=== PATIENT | female | born 2000 | race Two or more races ===

== ENCOUNTER 2020-09-08 21:25 | Inpatient (IN) | payer OTHER ==
[~2020-09-08] VITALS: Ht 154.9 cm; Wt 54.0 kg
[2020-09-11] MEDS ORDERED: PRENATAL + DHA1 EAC1 PO (08:40)
== END 2020-09-18 14:41 | disposition home or self-care (01) | DRG 787 ==
LOC: OBS/DEL 21:25 → LDR 22:35 → OB/GYN 22:35
PROVIDERS: ADMIT Obstetrics & Gynecology; ATTEND Obstetrics & Gynecology
PROC: 4A1HX4Z Monitoring of Products of Conception, Cardiac Electrical Activity, External Approach (ICD-10-PCS; 2020-09-08)
PROC: 3E033VJ Introduction of Other Hormone into Peripheral Vein, Percutaneous Approach (ICD-10-PCS; 2020-09-15)
PROC: 10D00Z1 Extraction of Products of Conception, Low, Open Approach (ICD-10-PCS; principal; 2020-09-15 07:00)
DX: O60.10X0 Preterm labor with preterm delivery, unspecified trimester, not applicable or unspecified (principal); O26.872 Cervical shortening, second trimester; O36.5930 Maternal care for other known or suspected poor fetal growth, third trimester, not applicable or unspecified; Z3A.28 28 weeks gestation of pregnancy; Z37.0 Single live birth; B95.1 Streptococcus, group B, as the cause of diseases classified elsewhere; Z20.822 Contact with and (suspected) exposure to COVID-19

== ENCOUNTER 2020-11-01 08:00 | Outpatient (CLI) | payer OTHER ==
[~2020-11-01 08:00] MED LIST: PRENATAL + DHA1 EAC1 PO
== END 2020-11-01 08:30 | disposition home or self-care (01) ==
LOC: PPH VACUNA 08:00
DX: Z23 Encounter for immunization (principal)

== ENCOUNTER 2020-11-21 08:00 | Outpatient (CLI) | payer OTHER | END 2020-11-21 08:30 | disposition home or self-care (01) | LOC: PPH VACUNA 08:00 | DX: Z23 Encounter for immunization (principal) ==

== ENCOUNTER 2021-03-31 22:29 | Emergency (ER) | payer OTHER ==
[~2021-03-31] VITALS: Ht 157.5 cm; Wt 55.8 kg
[2021-04-01] MEDS ORDERED: ZYRTEC10 MG PO (01:59)
[2021-04-01] MEDS ORDERED: TUSNEL LIQUID178 ML PO (01:59)
[2021-04-01] MEDS ORDERED: ZITHROMAX500 MG PO (01:59)
== END 2021-04-01 02:37 | disposition home or self-care (01) ==
LOC: ER 22:29
DX: J06.9 Acute upper respiratory infection, unspecified (principal)

== ENCOUNTER 2022-03-18 07:54 | Emergency (ER) | payer OTHER ==
[~2022-03-18] VITALS: Ht 154.9 cm; Wt 56.2 kg
[~2022-03-18 07:54] MED LIST changes: +TUSNEL LIQUID178 ML PO; +ZITHROMAX500 MG PO; +ZYRTEC10 MG PO
[2022-03-18] MEDS ORDERED: PRENA1 CHEW TA1.4 MG PO (08:01)
[2022-03-18] MEDS ORDERED: CENTANY30 GM TOP (08:52)
== END 2022-03-18 09:06 | disposition home or self-care (01) ==
LOC: ER 07:54
DX: S81.851A Open bite, right lower leg, initial encounter (principal); W54.0XXA Bitten by dog, initial encounter; Y93.89 Activity, other specified; Y92.89 Other specified places as the place of occurrence of the external cause; Z91.013 Allergy to seafood

== ENCOUNTER 2022-06-07 12:37 | Inpatient (IN) | payer OTHER ==
[~2022-06-07] VITALS: Ht 154.9 cm; Wt 64.0 kg
[~2022-06-07 12:37] MED LIST changes: +CENTANY30 GM TOP; +PRENA1 CHEW TA1.4 MG PO
== END 2022-06-12 14:33 | disposition home or self-care (01) | DRG 788 ==
LOC: LDR 12:37 → OB/GYN 12:37
PROVIDERS: ADMIT Obstetrics & Gynecology; ATTEND Obstetrics & Gynecology
PROC: 4A1HXCZ Monitoring of Products of Conception, Cardiac Rate, External Approach (ICD-10-PCS; 2022-06-07)
PROC: BY4FZZZ Ultrasonography of Third Trimester, Single Fetus (ICD-10-PCS; 2022-06-07)
PROC: BU4CZZZ Ultrasonography of Uterus and Ovaries (ICD-10-PCS; 2022-06-07)
PROC: 10D00Z1 Extraction of Products of Conception, Low, Open Approach (ICD-10-PCS; principal; 2022-06-09 23:00)
DX: O34.211 Maternal care for low transverse scar from previous cesarean delivery (principal); O36.8130 Decreased fetal movements, third trimester, not applicable or unspecified; O26.843 Uterine size-date discrepancy, third trimester; Z3A.34 34 weeks gestation of pregnancy; Z37.0 Single live birth

== ENCOUNTER → 2023-05-29 | Emergency (ER) | payer OTHER ==
[~2023-05-29] VITALS: Ht 154.9 cm; Wt 54.4 kg
== END | disposition home or self-care (01) ==
LOC: ER 15:58
DX: R05.9 Cough, unspecified (principal); Z20.822 Contact with and (suspected) exposure to COVID-19; Z91.013 Allergy to seafood

== ENCOUNTER 2024-01-20 15:55 | Outpatient (CLI) | payer OTHER | END 2024-01-20 15:56 | disposition home or self-care (01) | LOC: PRENATAL 15:55 | PROVIDERS: ATTEND Obstetrics & Gynecology Maternal & Fetal Medicine | DX: O35.3XX0 Maternal care for (suspected) damage to fetus from viral disease in mother, not applicable or unspecified (principal); O44.00 Complete placenta previa NOS or without hemorrhage, unspecified trimester; O34.219 Maternal care for unspecified type scar from previous cesarean delivery; O60.00 Preterm labor without delivery, unspecified trimester; Z3A.19 19 weeks gestation of pregnancy ==

== ENCOUNTER 2024-03-24 15:02 | Outpatient (CLI) | payer OTHER | END 2024-03-24 15:03 | disposition home or self-care (01) | LOC: PRENATAL 15:02 | PROVIDERS: ATTEND Obstetrics & Gynecology Maternal & Fetal Medicine | DX: O26.849 Uterine size-date discrepancy, unspecified trimester (principal); O36.8199 Decreased fetal movements, unspecified trimester, other fetus; O60.00 Preterm labor without delivery, unspecified trimester; Z3A.28 28 weeks gestation of pregnancy ==

== ENCOUNTER → 2024-04-27 15:29 | Outpatient (CLI) | payer OTHER | END | disposition home or self-care (01) | LOC: PRENATAL 15:29 | PROVIDERS: ATTEND Obstetrics & Gynecology Maternal & Fetal Medicine | DX: O26.849 Uterine size-date discrepancy, unspecified trimester (principal); O36.8199 Decreased fetal movements, unspecified trimester, other fetus; O34.219 Maternal care for unspecified type scar from previous cesarean delivery; O60.00 Preterm labor without delivery, unspecified trimester; Z3A.33 33 weeks gestation of pregnancy ==

== ENCOUNTER 2024-05-16 05:32 | Inpatient (IN) | payer OTHER ==
[~2024-05-16] VITALS: Ht 154.9 cm; Wt 2.7 kg
[2024-05-16 04:45] VITALS: BP 117/74
[2024-05-16 04:46] VITALS: BP 117/74
[2024-05-16] MEDS ORDERED: AMPICILLIN SODIUM 2,000 MG VIAL IV ONE (05:45)
[2024-05-16] MEDS ORDERED: RINGERS SOLUTION,LACTATED 1,000 ML IV SCH (05:45)
[2024-05-16] MEDS ORDERED: TERBUTALINE SULFATE 1 MG/ML AMPUL SUBCUTANEO SCH (05:45)
[2024-05-16 07:15] VITALS: BP 126/77; O2SAT 99
[2024-05-16 07:27] LABS: INR 0.94; PARTIAL THROMBOPLASTIN TIME 23.5 SECONDS (22.0-34.0); PROTHROMBIN TIME 10.3 SECONDS (9.0-11.5)
[2024-05-16 07:39] LABS: ALBUMIN 2.8 gm/dL (3.4-5.0); BILIRUBIN TOTAL 1.82 mg/dL (0.3-1.2); CALCIUM 8.8 mg/dL (8.5-10.1); CREATININE SERUM 0.54 mg/dL (0.55-1.02); GFR 136.47; GLOBULINA 3.8 G/DL (2.4-3.5); POTASSIUM 3.98 mEq/L (3.5-5.1); TOTAL PROTEIN 6.6 gm/dL (6.4-8.2)
[2024-05-16 08:00] LABS: PH,URINE 7.5 (5.0-8.0); URINE APPEARANCE Clear; URINE BILIRRUBIN Small (NEGATIVE); URINE BLOOD Negative; URINE COLOR Dark Yellow; URINE GLUCOSE Negative (NEGATIVE); URINE LEUKOCYTE Large; URINE NITRATE Negative; URINE PROTEIN Negative (NEGATIVE)
[2024-05-16 08:01] LABS: URINE BACTERIA 1463.8 uL (0.0-1933); URINE EPITHELIAL CELLS 29.1 uL (0.0-38.8); URINE RBC 6.4 uL (0.0-20.8); URINE WBC 62.2 uL (0.0-23.2)
[2024-05-16 08:02] LABS: HEMOGLOBIN 10.8 g/dL (12.0-15.00); MEAN CORPUSCULAR HEMOGLOBIN 25.6 pg (27.00-32.0); MEAN CORPUSCULAR HGB CONC 32.8 g/dl (32.0-36.0); PLATELET COUNT 247 K/uL (150-450); RED BLOOD COUNT 4.23 M/uL (4.00-6.00); RED CELL DISTRIBUTION WIDTH 15.4 % (11.5-14.5)
[2024-05-16 08:20] LABS: URINE CAST 0.14 uL (0.0-1.40); URINE KETONE 40 (NEGATIVE)
[2024-05-16] MEDS ORDERED: CEFAZOLIN SODIUM 1,000 MG VIAL IV SCH (08:30)
[2024-05-16] MEDS ORDERED: MORPHINE SULFATE 4 MG/ML VIAL IV ONE ×2 (11:05→11:35)
[2024-05-16] MEDS ORDERED: MORPHINE SULFATE 4 MG/ML CARTRIDGE IV PRN (11:30)
[2024-05-16] MEDS ORDERED: OXYTOCIN 1,000 ML IV SCH (11:45)
[2024-05-16] MEDS ORDERED: ERYTHROMYCIN BASE OPHT 1GM EACH TUBE OP ONE (12:00)
[2024-05-16] MEDS ORDERED: OXYTOCIN 10 UNITS/ML VIAL IV ONE (12:00)
[2024-05-16] MEDS ORDERED: SIMETHICONE 125 MG CAPSULE PO SCH (13:00)
[2024-05-16 13:08] VITALS: BP 131/74
[2024-05-16 15:07] VITALS: BP 131/74
[2024-05-16 15:15] LABS: HEMATOCRIT 31.5 % (36.0-45.00); HEMOGLOBIN 10.2 g/dL (12.0-15.00); MEAN CELL VOLUME 77.1 fL (80.00-100.00); MEAN CORPUSCULAR HEMOGLOBIN 24.9 pg (27.00-32.0); MEAN CORPUSCULAR HGB CONC 32.4 g/dl (32.0-36.0); PLATELET COUNT 213 K/uL (150-450); RED BLOOD COUNT 4.08 M/uL (4.00-6.00); RED CELL DISTRIBUTION WIDTH 15.6 % (11.5-14.5)
[2024-05-16] MEDS ORDERED: IBUprofen 800 MG TABLET PO PRN (17:00)
[2024-05-16] MEDS ORDERED: DOCUSATE SODIUM 100MG CAP PO SCH (17:00)
[2024-05-17 02:22] VITALS: BP 101/54
[2024-05-17 08:17] VITALS: BP 100/65
[2024-05-17 16:34] VITALS: BP 112/75
[2024-05-17 23:40] VITALS: BP 124/82
[2024-05-18 07:34] VITALS: BP 119/77
== END 2024-05-18 17:26 | disposition home or self-care (01) | DRG 788 ==
LOC: LDR 05:32 → OB/GYN 05:32 → O/R 10:31 → OB/GYN 10:51
PROVIDERS: ADMIT Obstetrics & Gynecology; ATTEND Obstetrics & Gynecology
PROC: 4A1HXCZ Monitoring of Products of Conception, Cardiac Rate, External Approach (ICD-10-PCS; 2024-05-16)
PROC: 10D00Z1 Extraction of Products of Conception, Low, Open Approach (ICD-10-PCS; principal; 2024-05-16 08:00)
DX: O60.14X0 Preterm labor third trimester with preterm delivery third trimester, not applicable or unspecified (principal); O34.211 Maternal care for low transverse scar from previous cesarean delivery; Z3A.36 36 weeks gestation of pregnancy; Z37.0 Single live birth; Z20.822 Contact with and (suspected) exposure to COVID-19